=== PATIENT | male | born 1970 | race Two or more races ===

== ENCOUNTER 2024-10-12 10:13 | Emergency (ER) | payer OTHER, SELFPAY ==
[2024-10-12] VITALS (8 sets, daily range): BP systolic 130–133; BP diastolic 82–84; PULSE 77–84; RESP 16–20; TEMP 36.4; O2SAT 96–98; BMI 34.3
[2024-10-12 11:02] LABS: Appearance Urine Cloudy (Clear); Bilirubin Urine Negative (Negative); Blood Urine 3+ (Negative); Color Urine Yellow (Yellow); Glucose Urine Negative (Negative); Ketones Urine Trace (Negative); Leukocyte Esterase Urine 3+ (Negative); Nitrite Urine Negative (Negative); Protein Urine 3+ (Negative); Specific Gravity Urine >= 1.030 (1.000-1.030); Urobilinogen Urine 0.2 (0.2-1.0); pH Urine 6.5 (5.0-8.5)
[2024-10-12 11:33] LABS: Bacteria Urine Many; WBC Urine >100 (0-5)
[2024-10-12 11:34] LABS: Other Sediment Urine Few
--- NOTE | 2024-10-12 11:53 | CRLHL7_ITS ---
For Patients: As a result of the 21st Century Cures Act, medical imaging exams and procedure reports are released immediately into your electronic medical record. You may view this report before your referring provider. If you have questions, please contact your health care provider. INDICATION: Left flank pain for 3 weeks. Infected urine. TECHNIQUE: CT abdomen and pelvis acquired without contrast. COMPARISON: None. FINDINGS: Lower chest: Calcified granuloma in the lingula. Lung bases otherwise clear. No pleural or pericardial effusions. Liver: The unenhanced liver is unremarkable. Spleen: Unremarkable. Pancreas: Unremarkable. Gallbladder and bile ducts: Calcified stone near the neck measures 17 mm. No acute inflammatory change of the gallbladder. No biliary ductal dilatation. Kidneys: No ureteral stones or hydronephrosis. Asymmetrically enlarged multicystic left kidney with perinephric stranding and no well-defined cortex. Left renal pelvic stone measures 20 mm. Additional smaller calcifications in the posterior inferior left kidney. No discrete perinephric fluid collection. The unenhanced right kidney is unremarkable. Adrenal glands: Unremarkable. GI tract: No evidence of obstruction or acute appendicitis. No focal inflammatory change elsewhere. No free air or free fluid. Lymph nodes: Borderline and mildly enlarged left para-aortic/retroperitoneal nodes medial and inferior to the left kidney. Vascular structures: Unremarkable. Pelvic Organs: Mild prostatomegaly. 11 mm low-density with adjacent calcification in the anterior right paramidline base of the prostate, for example on image 147 of series 2. Bladder as imaged is unremarkable. Bones: No acute or suspicious osseous abnormality. IMPRESSION: 1. Enlarged multi cystic, likely end-stage left kidney with diffuse renal cortical thinning, perinephric stranding and nephrolithiasis. Finding likely represent acute on chronic infection/inflammation, to include sequela of tuberculosis. No hydronephrosis, ureteral stone or perinephric fluid collection. Urology consultation regarding further management recommended. 2. Left para-aortic lymphadenopathy near the left kidney is likely reactive. 3. Low-density with adjacent calcification in the anterior right paramidline prostate is of uncertain significance. Given the renal findings, tuberculous involvement of the prostate is a consideration. 4. Cholelithiasis. Discussed with Dr. Gonzalez by telephone at 1:40 pm on 10/12/2024. Dictated by Saturnino Whalen MD @ 10/12/2024 1:35:19 PM Please note that all CT scans at this facility use dose modulation, iterative reconstruction, and/or weight-based dosing when appropriate to reduce radiation dose to as low as reasonably achievable. Dictated by: Saturnino Whalen MD @ 10/12/2024 13:40:40 (Electronically Signed)
--- NOTE | 2024-10-12 11:55 | ED.GENADULT ---
HPI - General Adult General Date Seen: 10/12/24 Chief complaint: Flank Pain Stated complaint: back pain Time Seen by Provider: 10/12/24 11:40 History of Present Illness HPI narrative: Patient is a 54-year-old male, Turkish speaking, his daughter is interpreting. 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 He notes left flank pain with some radiation into the left abdomen for 3 weeks. It was worse last night. He has had some tactile fevers, some headaches, initially had some dysuria although he says that is improved. Has not noted hematuria. He denies prior history of kidney stones. Denies any medical history or medications although he notes he has not been to a doctor for 2-3 years. He does not smoke or drink. Related Data Home Medications ?Medication ?Instructions ?Recorded ?Confirmed No Known Home Medications 10/12/24 10/12/24 Allergies Allergy/AdvReac Type Severity Reaction Status Date / Time No Known Drug Allergies Allergy Verified 10/12/24 10:22 Review of Systems Status of ROS: Reports: 10 or more systems reviewed and unremarkable except as noted in History and below [facility] Social History Smoking Status: Never smoker Do you use any of these nicotine containing products: None Second hand tobacco smoke exposure: No How often do you have a drink containing alcohol: never AUDIT-C Alcohol total score: 0 Non-prescribed substance use: denies use Exam Narrative: Exam Narrative: Vital signs reviewed In general, alert, nontoxic middle-aged male, looks comfortable. Head: Normocephalic, atraumatic. Eyes: Sclera clear. Pupils equal and reactive. ENT: Mucous membranes moist. Neck: Supple without adenopathy. Heart: Regular rate and rhythm without murmur. Lungs: Clear. No increased work of breathing, crackles or wheezes. Abdomen: Soft, nontender to palpation. No CVA tenderness. Extremities: Well perfused, pulses intact. No significant edema. Neurologic: Alert, conversant. Speech fluent, face symmetric. Moves all extremities equally. Skin: Warm, dry well perfused. Affect: Normal. Const: Vital Signs, click to edit/add: Vital Signs - 24 hr 10/12/24 10:19 10/12/24 12:50 10/12/24 13:00 Temperature 97.6 F Pulse Rate 84 83 Pulse Rate [Pulse Oximeter] 84 Respiratory Rate 20 Blood Pressure [Ri ght Upper Arm] 133/84 Pulse Oximetry 98 98 97 Oxygen Delivery Me thod Room Air 10/12/24 13:15 10/12/24 13:30 10/12/24 13:45 Temperature Pulse Rate 82 79 77 Pulse Rate [Pulse Oximeter] Respiratory Rate 16 Blood Pressure [Ri ght Upper Arm] Pulse Oximetry 98 96 98 Oxygen Delivery Me thod 10/12/24 14:00 10/12/24 17:25 Temperature Pulse Rate 81 Pulse Rate [Pulse Oximeter] 83 Respiratory Rate 16 Blood Pressure [Ri ght Upper Arm] 130/82 Pulse Oximetry 96 98 Oxygen Delivery Me thod Course Course ED Course: A urinalysis was obtained while he was in triage, this is notable for greater than 100 white blood cells, 10-25 red blood cells. He is otherwise nontoxic in appearance, afebrile here, certainly does not look acutely ill. CT scan is warranted to look for kidney stone, pyelonephritis, symptoms seem likely to be related to urinary pathology given the abnormal urinalysis, less likely to be musculoskeletal or related to a GI issue such as diverticulitis, colitis etc.. Will place an IV, give some fluids, labs pending. In the meantime giving 4 mg of morphine for pain control, Zofran for nausea. CBC and metabolic panel are normal, CRP is elevated at 16.9. Lactate is normal. LFTs notable for mild transaminase elevations AST of 42 and ALT of 76, otherwise normal. I reviewed his CT scan, he has of an enlarged cystic appearing kidney with staghorn calculus in the renal pelvis, there is no ureteral stone or hydroureter. There is some stranding around the kidney. I spoke with the radiologist about his scan as well. They note a chronically infected appearing kidney which he feels is likely and stage, and notes that to work you low says can cause this appearance. I talk with the patient a little bit more, did use an motion picture set worker at this point. [place], denies any travel out of the country in that time. He denies any weight loss or night sweats, he has not had pulmonary symptoms. He is unaware of any prior diagnosis of tuberculosis. I did a portable chest x-ray, this is read by Radiology showing some apical perhaps scarring, chest CT recommended. This is read by Radiology showing severe apical fibrosis on the right side which is nonspecific but could represent prior tuberculosis. Care was discussed with the hospitalist at [facility] as urology consult is recommended. I gave him Rocephin 1 g IV. There was some bed delay and transport delay by EMS, but plan will be to transfer by ground for specialty care. This was discussed with the patient and his daughter, they understand reason for transfer and agreed to proceed. Vital Signs Vital signs: Initial Vital Signs Temperature 97.6 F 10/12/24 10:19 Temperature Source Temporal Artery Scan 10/12/24 10:19 Pulse Rate 84 10/12/24 10:19 Pulse Rhythm Regular 10/12/24 10:19 Pulse Strength 3+ Normal 10/12/24 10:19 Respiratory Rate 20 10/12/24 10:19 Blood Pressure 133/84 10/12/24 10:19 Blood Pressure Mean 100 10/12/24 10:19 Blood Pressure Position Sitting 10/12/24 10:19 Pulse Oximetry 98 10/12/24 10:19 Oxygen Delivery Method Room Air 10/12/24 10:19 Vital Signs Temperature 97.6 F 10/12/24 10:19 Pulse Rate 84 10/12/24 10:19 Respiratory Rate 20 10/12/24 10:19 Blood Pressure 133/84 10/12/24 10:19 Pulse Oximetry 98 10/12/24 10:19 Oxygen Delivery Method Room Air 10/12/24 10:19 Temperature 97.6 F 10/12/24 10:19 Pulse Rate 83 10/12/24 17:25 Respiratory Rate 16 10/12/24 17:25 Blood Pressure 130/82 10/12/24 17:25 Pulse Oximetry 98 10/12/24 17:25 Oxygen Delivery Method Room Air 10/12/24 10:19 Medications Administered Medications: Discontinued Medications Generic Name Dose Route Start Last Admin Trade Name Freq PRN Reason Stop Dose Admin Sodium Chloride 1,000 mls @ 1,000 mls/hr 10/12/24 12:00 10/12/24 13:34 0.9 % Sodium Chloride 1000 Ml IV 10/12/24 12:59 Infused .Q1H BENEDICT Infusion Ceftriaxone Sodium 1 gm/ 100 mls @ 200 mls/hr 10/12/24 13:43 10/12/24 15:10 Sodium Chloride IVPB 10/12/24 13:44 Infused ONCE ONE Infusion Morphine Sulfate 4 mg 10/12/24 11:53 10/12/24 12:45 Morphine 4 Mg/Ml Inj IVP 10/12/24 11:54 4 mg ONCE ONE Administration Ondansetron HCl 4 mg 10/12/24 11:53 10/12/24 12:45 Ondansetron 2 Mg/Ml Inj IVP 10/12/24 11:54 4 mg ONCE ONE Administration Medical Decision Making Lab Data Lab results reviewed: Yes I reviewed the patient's lab results Labs: Lab Results 10/12/24 10/12/24 Range/Units 10:56 12:17 WBC 9.25 (4.50-11.00) K/uL RBC 4.69 (4.30-5.90) m/uL Hgb 13.7 (13.5-17.5) gm/dL Hct 41.3 (37.0-53.0) % MCV 88 (80-100) fL MCH 29 (26-34) pg MCHC 33 (32-36) gm/dL RDW Coeff of Geraldine 13.1 (11.5-15.5) % Plt Count 294 (140-440) K/uL Neut % (Auto) 66.3 (42.0-72.0) % Lymph % (Auto) 21.6 (20-44) % Duchesne % (Auto) 9.1 (0.0-11.0) % Eos % (Auto) 2.4 (0.0-7.0) % Baso % (Auto) 0.5 (0.0-3.0) % Neut # (Auto) 6.13 (1.7-7.0) K/uL Lymph # (Auto) 2.00 (0.90-2.90) K/uL Duchesne # (Auto) 0.80 (0.00-0.90) K/UL Eos # (Auto) 0.22 (0.00-0.50) K/uL Baso # (Auto) 0.05 (0.00-0.30) K/uL Abs Immat Gran (auto) 0.01 (0.00-0.30) K/uL Imm/Tot Granulo (auto) 0.1 % Sodium 138 (135-149) mmol/L Potassium 4.3 (3.6-5.1) mmol/L Chloride 103 (96-114) mmol/L Carbon Dioxide 25 (20-32) mmol/L Anion Gap 10 (7-15) mEq/L BUN 19 (7-30) mg/dL Creatinine 1.2 (0.5-1.5) mg/dL Estimated Creat Clear 58.24 Estimated GFR 71 ml/min Glucose 104 (60-115) mg/dL Lactate 1.0 (0.5-1.9) mmol/L Calcium 8.9 (8.4-10.6) mg/dL Total Bilirubin 0.9 (0.1-1.5) mg/dL Direct Bilirubin 0.5 (0.0-0.5) mg/dL AST 42 H (12-35) U/L ALT 76 H (4-50) U/L Alkaline Phosphatase 119 (40-150) U/L C-Reactive Protein 16.9 H (0.5-1.0) mg/dL Total Protein 8.4 H (6.0-8.3) g/dL Albumin 4.4 (3.3-5.0) g/dL Urine Color Yellow (Yellow) Urine Appearance Cloudy A (Clear) Urine pH 6.5 (5.0-8.5) Ur Specific Dutton >= 1.030 (1.000-1.030) Urine Protein 3+ A (Negative) Urine Glucose (UA) Negative (Negative) Urine Ketones Trace A (Negative) Urine Blood 3+ A (Negative) Urine Nitrite Negative (Negative) Urine Bilirubin Negative (Negative) Urine Urobilinogen 0.2 (0.2-1.0) Ur Leukocyte Esterase 3+ A (Negative) Urine RBC 10-25 A (0-2) Urine WBC >100 A (0-5) Ur Squamous Epith Cells None (None-Few) Other Sediment Few A (None) Urine Bacteria Many A (None) Urine Yeast Few A (None) Imaging Data CT Chest/Ab/Pelvis: Attestation: I have reviewed the pertinent imaging results. Radiologist's impression: Patient: Ha Uribe MR#: [id number] : 1970 Acct:[id number] Loc: ED Service Date: 10/12/[address]: Ordering Physician: Hamida Gonzalez M.D. Date of Service: 10/12/24 Procedure(s): CT chest wo con Accession Number(s): [id number] cc: Hamida Gonzalez M.D.; Provider,Not a Local~ For Patients: As a result of the Cures Act, medical imaging exams and procedure reports are released immediately into your electronic medical record. You may view this report before your referring provider. If you have questions, please contact your health care provider. INDICATION: eval for TB. TECHNIQUE: CT chest without contrast. COMPARISON: Same-day CT abdomen and pelvis. FINDINGS: Lungs and pleura: Right upper lobe severe reticulonodular scarring and bronchiectasis with associated volume loss and likely compensatory expansion of the right middle lobe. Mild scarring in the left upper lobe. Few scattered calcified granulomas and micronodules. No pleural effusions or pneumothorax. Heart and vasculature: Heart size is normal. Thoracic aorta and pulmonary artery are normal in caliber. Lymph nodes/mediastinum: No mediastinal, hilar, or axillary adenopathy. Chest wall: No masses. Upper abdomen: Please see the same-day CT abdomen and pelvis. Bones: Unremarkable for age. IMPRESSION: 1. Severe right upper lobe apical fibrosis, which is nonspecific, but may reflect sequelae of tuberculosis. 2. There is also mild left apical scarring with a few nonspecific pulmonary micronodules, which may also be infectious inflammatory in etiology. Please note that all CT scans at this facility use dose modulation, iterative reconstruction, and/or weight-based dosing when appropriate to reduce radiation dose to as low as reasonably achievable. Dictated by Fabian Epps MD @ 10/12/2024 4:30:18 PM Patient: Ha Uribe MR#: [id number] : 1970 Acct:[id number] Loc: ED Service Date: 10/12/[address]: Ordering Physician: Hamida Gonzalez M.D. Date of Service: 10/12/24 Procedure(s): CT abdomen pelvis wo con Accession Number(s): [id number] cc: Hamida Gonzalez M.D.; Provider,Not a Local~ For Patients: As a result of the Cures Act, medical imaging exams and procedure reports are released immediately into your electronic medical record. You may view this report before your referring provider. If you have questions, please contact your health care provider. INDICATION: Left flank pain for 3 weeks. Infected urine. TECHNIQUE: CT abdomen and pelvis acquired without contrast. COMPARISON: None. FINDINGS: Lower chest: Calcified granuloma in the lingula. Lung bases otherwise clear. No pleural or pericardial effusions. Liver: The unenhanced liver is unremarkable. Spleen: Unremarkable. Pancreas: Unremarkable. Gallbladder and bile ducts: Calcified stone near the neck measures 17 mm. No acute inflammatory change of the gallbladder. No biliary ductal dilatation. Kidneys: No ureteral stones or hydronephrosis. Asymmetrically enlarged multicystic left kidney with perinephric stranding and no well-defined cortex. Left renal pelvic stone measures 20 mm. Additional smaller calcifications in the posterior inferior left kidney. No discrete perinephric fluid collection. The unenhanced right kidney is unremarkable. Adrenal glands: Unremarkable. GI tract: No evidence of obstruction or acute appendicitis. No focal inflammatory change elsewhere. No free air or free fluid. Lymph nodes: Borderline and mildly enlarged left para-aortic/retroperitoneal nodes medial and inferior to the left kidney. Vascular structures: Unremarkable. Pelvic Organs: Mild prostatomegaly. 11 mm low-density with adjacent calcification in the anterior right paramidline base of the prostate, for example on image 147 of series 2. Bladder as imaged is unremarkable. Bones: No acute or suspicious osseous abnormality. IMPRESSION: 1. Enlarged multi cystic, likely end-stage left kidney with diffuse renal cortical thinning, perinephric stranding and nephrolithiasis. Finding likely represent acute on chronic infection/inflammation, to include sequela of tuberculosis. No hydronephrosis, ureteral stone or perinephric fluid collection. Urology consultation regarding further management recommended. 2. Left para-aortic lymphadenopathy near the left kidney is likely reactive. 3. Low-density with adjacent calcification in the anterior right paramidline prostate is of uncertain significance. Given the renal findings, tuberculous involvement of the prostate is a consideration. 4. Cholelithiasis. Discussed with Dr. Gonzalez by telephone at 1:40 pm on 10/12/2024. Dictated by Saturnino Whalen MD @ 10/12/2024 1:35:19 PM Please note that all CT scans at this facility use dose modulation, iterative reconstruction, and/or weight-based dosing when appropriate to reduce radiation dose to as low as reasonably achievable. Dictated by: Saturnino Whalen MD @ 10/12/2024 13:40:40 Discharge Plan Discharge Clinical Impression: Chronic kidney infection Patient Disposition: [facility] Condition: Stable Prescriptions: No Action No Known Home Medications Stand Alone Forms: MyHealth Info Instructions
[2024-10-12 12:25] LABS: Basophils Absolute Auto 0.05 K/uL (0.00-0.30); Basophils Percent Auto 0.5 % (0.0-3.0); Eosinophils Absolute Auto 0.22 K/uL (0.00-0.50); Eosinophils Percent Auto 2.4 % (0.0-7.0); Hematocrit 41.3 % (37.0-53.0); Hemoglobin* 13.7 gm/dL (13.5-17.5); Immature Granulocytes Abs Auto 0.01 K/uL (0.00-0.30); Immature Granulocytes Pct Auto 0.1 %; Lymphocytes Percent Auto 21.6 % (20-44); Mean Corpuscular HGB Conc 33 gm/dL (32-36); Mean Corpuscular Hemoglobin 29 pg (26-34); Mean Corpuscular Volume 88 fL (80-100); Monocytes Percent Auto 9.1 % (0.0-11.0); Neutrophils Absolute Auto 6.13 K/uL (1.7-7.0); Neutrophils Percent Auto 66.3 % (42.0-72.0); Platelet Count* 294 K/uL (140-440); RDW Coefficient of Variation % 13.1 % (11.5-15.5); Red Blood Count 4.69 m/uL (4.30-5.90); White Blood Count* 9.25 K/uL (4.50-11.00)
[2024-10-12 12:34] LABS: Slide Review Reflex No
[2024-10-12] MEDS: ONDANSETRON 2 MG/ML inj 4 MG IVP (12:45)
[2024-10-12] MEDS: 0.9 % SODIUM CHLORIDE 1000 ml 1,000 ML IV (12:45)
[2024-10-12] MEDS: MORPHINE 4 MG/ML INJ IVP (12:45)
[2024-10-12 12:51] LABS: Albumin* 4.4 g/dL (3.3-5.0); Chloride* 103 mmol/L (96-114); Sodium* 138 mmol/L (135-149)
[2024-10-12 12:52] LABS: Potassium* 4.3 mmol/L (3.6-5.1)
[2024-10-12 12:54] LABS: Blood Urea Nitrogen* 19 mg/dL (7-30); Creatinine* 1.2 mg/dL (0.5-1.5); Est. Creatinine Clearance* 58.24; Estimated Glomerular Filt Rate 71 ml/min
[2024-10-12 12:55] LABS: Alanine Aminotransferase* 76 U/L (4-50); Alkaline Phosphatase* 119 U/L (40-150); Anion Gap 10 mEq/L (7-15); Aspartate Amino Transferase* 42 U/L (12-35); Bilirubin Direct* 0.5 mg/dL (0.0-0.5); Bilirubin Total* 0.9 mg/dL (0.1-1.5); Calcium* 8.9 mg/dL (8.4-10.6); Carbon Dioxide* 25 mmol/L (20-32); Glucose* 104 mg/dL (60-115); Total Protein* 8.4 g/dL (6.0-8.3)
[2024-10-12 13:36] LABS: C Reactive Protein* 16.9 mg/dL (0.5-1.0)
--- NOTE | 2024-10-12 14:03 | CRLHL7_ITS ---
For Patients: As a result of the Century Cures Act, medical imaging exams and procedure reports are released immediately into your electronic medical record. You may view this report before your referring provider. If you have questions, please contact your health care provider. INDICATION: Possible tuberculosis exposure. TECHNIQUE: Chest radiograph, 1 view. COMPARISON: None. FINDINGS: Cardiovascular/Mediastinum: Normal heart size. Unremarkable. Lungs: Right apical pleural-parenchymal scarring and opacification, indeterminate. No definite cavitary nodules identified. Airways: Right apical pleural-parenchymal scarring results in mild retraction of the trachea to the right. Otherwise, unremarkable. Pleura: No pleural effusions or pneumothorax. Bones: No acute osseous abnormalities. Upper abdomen: Unremarkable. IMPRESSION: Ill-defined right apical opacification is nonspecific, possibly scarring of unknown etiology, poorly characterized on radiographs. No definite cavitary nodules identified to suggest reactivation tuberculosis. Recommend CT for improved characterization. Dictated by Jordon Palmer MD @ 10/12/2024 3:20:25 PM (Electronically Signed)
[2024-10-12] MEDS: cefTRIAXone 1 GM in 0.9 % SODIUM CHLORIDE Mini-bag 100 ML IVPB (14:13)
--- NOTE | 2024-10-12 15:26 | CRLHL7_ITS ---
For Patients: As a result of the Century Cures Act, medical imaging exams and procedure reports are released immediately into your electronic medical record. You may view this report before your referring provider. If you have questions, please contact your health care provider. INDICATION: eval for TB. TECHNIQUE: CT chest without contrast. COMPARISON: Same-day CT abdomen and pelvis. FINDINGS: Lungs and pleura: Right upper lobe severe reticulonodular scarring and bronchiectasis with associated volume loss and likely compensatory expansion of the right middle lobe. Mild scarring in the left upper lobe. Few scattered calcified granulomas and micronodules. No pleural effusions or pneumothorax. Heart and vasculature: Heart size is normal. Thoracic aorta and pulmonary artery are normal in caliber. Lymph nodes/mediastinum: No mediastinal, hilar, or axillary adenopathy. Chest wall: No masses. Upper abdomen: Please see the same-day CT abdomen and pelvis. Bones: Unremarkable for age. IMPRESSION: 1. Severe right upper lobe apical fibrosis, which is nonspecific, but may reflect sequelae of tuberculosis. 2. There is also mild left apical scarring with a few nonspecific pulmonary micronodules, which may also be infectious inflammatory in etiology. Please note that all CT scans at this facility use dose modulation, iterative reconstruction, and/or weight-based dosing when appropriate to reduce radiation dose to as low as reasonably achievable. Dictated by Fabian Epps MD @ 10/12/2024 4:30:18 PM (Electronically Signed)
--- OUTSIDE RECORDS SUMMARY | 2024-10-12 17:07 | XMS_ITS | Clinical Summary ---
Author Organization [facility] Address formerly [facility] [place] [address] Care Team Providers Care Site Reliability Engineer Name Role Phone Pcp, No Primary Care Provider Unavailabl e Allergies No known active allergies Medications triamcinolone (ARISTOCORT) 0.1 % ointmentIndicati ons:Contact dermatitis, unspecified contact dermatitis type, unspecified trigger Apply topically to affected area(s) 2 times daily. 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 (retinal detachment) 08/22/2014 Encounters Date Type Department Care Team Description 10/12/2024 9:30 PM CDT Hospital Encounter [facility] [address] [place] [address] [facility], w Hospitalists Of from Last 3 Months Immunizations Immunization Administration Dates Next Due Tdap 05/31/2009 Family History Medical History Relation Name Comments Genitourinary Disease Father Prosta te issues Heart Disease Mother [place] Relation Name Status Comments Father (Age 87) Old age Mother (Age 64) Unknown CO D Social History Tobacco Use Types Packs/Day Years Used Date Smoking Tobacco: Former Smokeless Tobacco: Never Tobacco Cessation:Counseling Given: Yes Comments:quit 2009, was a light s moker. 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 Not on file Not on file Obstetrics History Last Filed Vital Signs Vital Sign Reading Time Taken Comments Blood Pressure 102/68 02/09/2017 9:11 AM CDT Pulse 67 02/09/2017 9:11 AM CDT Temperature 36.6 C (97.9 F) 02/09/2017 9:11 AM CDT Respiratory Rate 16 08/28/2014 2:03 PM CDT Oxygen Saturation 98% 02/09/2017 9:11 AM CDT Inhaled Oxygen Concentration - - Weight 88.1 kg (194 lb 3.2 oz) 02/09/2017 9:11 A M CDT Height 158.5 cm (5' 2.4) 02/09/2017 9:11 AM CDT Body Mass Index 35.06 02/09/2017 9:11 AM CDT Plan of Treatment Health Maintenance Due Date Last Done Comments Depression screening for age 12+ 1981 HIV for age 15-65 1984 Hepatitis C screening for age 18-79 1987 Colonoscopy through age 75 2014 BMI (ht and wt on same day) for age 18+ 02/09/2018 0 02/09/2017 Tetanus booster 05/31/2019 05/31/2009 Pneumococcal series for age 50+ (1 of 1 - PCV) 020 Zoster (shingles) series for age 50+ (1 of 2) 06/01/19 20 Lipids for age 45-75 02/09/2022 02/09/2017 COVID-19 vaccine series ( - season) Influenza Vaccine (Season Ended) 2025 Tdap Completed 05/31/2009 Medical Devices Implanted Type Area Non Morse Intercept Technician Device Identifier Shelf Expiration Date Model / Serial / Lot Sleeve Silcn 1.00i.D.X2.1mm Od [id number] [employer] - [id number] Implanted:Qty: 1 on 08/28/2014 by Osvaldo Trujillo MD at [facility] Left: Eye [employer] 03/30/2021 [id number]# / / [id number] [employer] 7.0/2.5mm [id number] [employer]ove[employer]cave [id number] [employer] - [id number] Implanted:Qty: 1 on 08/28/2014 by Osvaldo Trujillo MD at [facility] Left: Eye [employer] 08/28/2018 [id number]# / / [id number] Band Circling .[id number] X [id number] [employer] - [id number] Implanted:Qty: 1 on 08/28/2014 by Osvaldo Trujillo MD at [facility] Left: Eye [employer] 03/30/2020 [id number]# / / [id number] Procedures Procedure Name Priority Date/Time Associated Diagnosis Comments LIPID PANEL W REFLEX MEASURED LDL Routine 02/09/2017 10:23 AM CDT Routine physical examination from Last 3 Months or Most Recently Relevant to Health Maintenance Results * (ABNORMAL) LIPID PANEL W REFLEX MEASURED LDL (02/09/2017 10:23 AM CDT) CHOLESTEROL,TOTAL 189 100 - 199 mg/dL 02/09/2017 6:18 PM CDT [facility] TRIGLYCERIDES 374(H) <150 mg/dL 02/09/2017 6:18 PM CDT [facility] HDL CHOLESTEROL 37(L) >40 mg/dL 7 6:18 PM CDT [facility] NON-HDL CHOLESTEROL 152(H) <145 mg/dl 02/09/2017 6:18 PM CDT [facility] CHOL/HDL RATIO 5.11(H) <4.50 02/09/2017 6:18 PM CDT [facility] LDL CHOLESTEROL 77 <=130 mg/dL 02/09/2017 6:18 PM CDT [facility] PATIENT STATUS FASTING 02/09/2017 6:18 PM CDT [facility] Blood BLOOD SPECIMEN / Unknown Venipuncture / Unknown 02/09/2017 10:23 AM CDT 02/09/2017 10:23 AM CDT us Brien Celestin MD CHEMISTRY Final Re sult [facility] [address] [place] [address], [place] from Last 3 Months or Most Recently Relevant to Health Maintenance Advance Directives * Full Code (Latest Code Status on File) Date Activated Date Inactivated Comments 08/28/2014 10:58 AM 08/28/2014 4:27 PM Care Teams Site Reliability Engineer Relationship Specialty Start Date End Date Pcp, No . PCP - General 08/27/14
[2024-10-14 12:36] LABS: QuantiFERON Mitogen minus NIL 9.97 IU/mL; QuantiFERON NIL 0.03 IU/mL; Quantiferon Plus TB1 minus NIL 8.76 IU/mL (<=0.34); Quantiferon Plus TB2 minus NIL 8.83 IU/mL (<=0.34); Quantiferon TB Gold Plus Positive (Negative)
--- NOTE | 2024-10-17 09:42 | ED.NURSE ---
Employee health and infectious control of [facility] were notified of patient's results.
== END 2024-10-12 20:32 | disposition short-term general hospital (02) ==
PROVIDERS: Student in an Organized Health Care Education/Training Program; Emergency Provider Emergency Medicine
DX: N10 Acute pyelonephritis (principal)
CPT/HCPCS: 36415; 71045; 71250; 74176; 80048; 80076; 81001; 83605; 85025; 86140; 86480; 87086; 94761; 96365; 96375; 99284; 99285; T1013; J0696; J2270; J2405; J7030

== ENCOUNTER 2024-10-12 20:25 | Outpatient (CLI) | payer OTHER, SELFPAY | END 2024-10-12 20:26 | disposition home or self-care (01) | LOC: AMB 10-13 10:22 | PROVIDERS: Visit Provider Student in an Organized Health Care Education/Training Program | DX: N15.9 Renal tubulo-interstitial disease, unspecified (principal) | CPT/HCPCS: A0425; A0427 ==